=== PATIENT | female | born 1955 | race Hispanic/Latino ===

== ENCOUNTER 2019-07-22 21:20 | Inpatient (IN) | payer BC, OTHER ==
[~2019-07-22] VITALS: Ht 152.4 cm; Wt 65.9 kg
[2019-07-22] MEDS ORDERED: SODIUM CHLORIDE 0.9% 500 ML IV ONE (21:56)
[2019-07-23] VITALS (57 sets, daily range): BP systolic 88–182; BP diastolic 36–119; PULSE 99–118; RESP 7–32; TEMP 97.6–98.5
[2019-07-23] MEDS ORDERED: LEVOFLOXACIN 500 MG/D5W 100 ML 100 ML ONE (00:45)
[2019-07-23] MEDS ORDERED: LIDOCAINE HCL-MPF 1% 2ML VIAL IV PRN (01:15)
[2019-07-23] MEDS ORDERED: ONDANSETRON HCL 4 MG/2 ML VIAL IV PRN (01:15)
[2019-07-23] MEDS ORDERED: ACETAMINOPHEN 650 MG SUPPOSITORY RC PRN (01:15)
[2019-07-23] MEDS ORDERED: POTASSIUM CHLORIDE 10MEQ/100ML 100 ML IV PRN (01:15)
[2019-07-23] MEDS ORDERED: GLUCAGON 1MG KIT 1 MG ML IM PRN (01:15)
[2019-07-23] MEDS ORDERED: DEXTROSE 50%-WATER 50 ML DISP.SYRIN IV PRN (01:15)
[2019-07-23] MEDS ORDERED: LEVOFLOXACIN 500 MG/D5W 100 ML 100 ML IV SCH (01:15)
[2019-07-23] MEDS ORDERED: LACTATED RINGERS 1000ML 1,000 ML IV SCH (01:15)
[2019-07-23] MEDS ORDERED: NS-20 MEQ KCL 1000ML 1,000 ML IV ONE (01:49)
[2019-07-23] MEDS ORDERED: MAGNESIUM 2GM PREMIX 50ML 50 ML IV ONE (01:50)
[2019-07-23] MEDS ORDERED: LACTATED RINGERS 1000ML 1,000 ML IV ONE (04:21)
[2019-07-23] MEDS ORDERED: MEROPENEM 1 GM VIAL ONE (05:38)
[2019-07-23] MEDS ORDERED: NOREPINEPHRINE 4MG/NS 250ML 250 ML IV ONE (05:39)
[2019-07-23] MEDS ORDERED: SODIUM CHLORIDE 0.9% 100 ML IV ONE (05:39)
[2019-07-23] MEDS ORDERED: VANCOMYCIN 1GM+NS 250ML 250 ML IV SCH (07:45)
[2019-07-23] MEDS ORDERED: VANCOMYCIN PROTOCOL PER PHARMACY IV PRN (07:45)
[2019-07-23] MEDS ORDERED: NOREPINEPHRINE 4MG/NS 250ML 250 ML IV SCH (08:00)
[2019-07-23] MEDS ORDERED: FUROSEMIDE 10 MG/ML 4ML VIAL IV SCH (08:15)
[2019-07-23] MEDS: MEROPENEM 500 MG VIAL IV SCH ×2 (08:36→16:25)
[2019-07-23] MEDS: INSULIN HUMULIN R 100 UNIT/ML 3ML SQ SCH ×3 (08:41→18:00)
[2019-07-23] MEDS ORDERED: FAMOTIDINE/PF 20 MG/2 ML VIAL IV SCH (09:00)
--- NOTE | 2019-07-23 12:50 | NUR ---
Dr Gonsalez at bedside, new orders given
[2019-07-23] MEDS: THIAMINE HCL 100 MG/ML 2ML VIAL IVP SCH (14:03)
[2019-07-23] MEDS: FUROSEMIDE 10 MG/ML 10ML VIAL IVP SCH ×2 (14:05→21:33)
[2019-07-23] MEDS: HEPARIN SODIUM 5000UNIT/ML 1ML VIAL SQ SCH (21:45)
--- NOTE | 2019-07-23 22:00 | NUR ---
Call from Dr Delacruz at 2023. Full report given on pt status. Reported CT abd/pelvis results. Ordered schedule patient to get a right side percutaneous nephrostomy tube placed by Interventional radiology tomorrow or as soon as possible. Clinical Program Consultant Nany informed for pt scheduling.
[2019-07-24] VITALS (24 sets, daily range): BP systolic 103–127; BP diastolic 44–79; PULSE 94–115; RESP 15–24; TEMP 97.4–98.8
[2019-07-24] MEDS: MEROPENEM 500 MG VIAL IV SCH ×3 (00:08→16:12)
--- NOTE | 2019-07-24 05:29 | NUR ---
Patient's daughter to visit patient this AM. Patient wants to wait to discuss procedure with daughter prior to signing consent for nephrostomy tube placement. Smith urine specimen sent to lab for UA as ordered.
[2019-07-24] MEDS: INSULIN HUMULIN R 100 UNIT/ML 3ML SQ SCH ×5 (06:00→20:26)
--- NOTE | 2019-07-24 07:07 | NUR ---
Care of patient endorsed to Son BARKER. Patient status unchanged. Call light and needed items placed readily at hand. Encouraged to call prn.
[2019-07-24] MEDS: THIAMINE HCL 100 MG/ML 2ML VIAL IVP SCH (08:34)
[2019-07-24] MEDS: FUROSEMIDE 10 MG/ML 10ML VIAL IVP SCH (08:34)
[2019-07-24] MEDS: HEPARIN SODIUM 5000UNIT/ML 1ML VIAL SQ SCH ×2 (09:00→20:25)
[2019-07-24] MEDS ORDERED: VANCOMYCIN 500MG+NS 100ML 100 ML IV SCH (09:00)
[2019-07-24] MEDS ORDERED: LIDOCAINE HCL 1% MDV 50ML VIAL ONE (12:55)
[2019-07-24] MEDS ORDERED: IODIXANOL 320 MG/ML 100 ML VIAL ONE (12:55)
[2019-07-24] MEDS ORDERED: FENTANYL CITRATE PF 50 MCG/1 ML 2ML VIAL ONE (13:48)
[2019-07-24] MEDS ORDERED: MIDAZOLAM HCL 1 MG/ML 2ML VIAL ONE (13:48)
--- NOTE | 2019-07-24 14:20 | NUR ---
pt. was on [id number] per Son PAZWill initiate Physical Therapy Evaluation [id number]/19/2020. Addendum: 07/24/19 at 1503 by SYDNI HILLIARD PT PT Amended: Links added.
[2019-07-24] MEDS ORDERED: PHARMACY COMMUNICATION MISC SCH ×2 (14:45→15:00)
[2019-07-24] MEDS: LACTATED RINGERS 1000ML 1,000 ML IV SCH (15:17)
--- NOTE | 2019-07-24 15:40 | NUR ---
DC Plan Discussed discharge plan with patient. States lives with 2 nieces who are both minors. States their grandmother (patient's mother Alpa Wynne) is currently staying with them. Denies any HH, provider, or DME. States independently performs all ADLs. States feels safe returning home upon discharge. Denies having any further questions/concerns. CD Addendum: 07/24/19 at 1637 by ESTIVEN HARMON CM Amended: Links added.
--- NOTE | 2019-07-24 17:38 | NUR ---
REPORT RECEIVED AT 1650 RECEIVED REPORT, PATIENT ON O2 AT 2 LITERS NC AND O2 SATS 98-100%, ON CLEAR LIQUID DIET, 2D ECHO SHOWS EF AT 40-45%, RIGHT NEPHROSTOMY TUBE PLACED 07/24/19 FLUSH WITH 10CC EVERY 8 HOURS NS . LAST FLUSHED AT 1600, BLOOD CULTURE 1 OF 2 FOR GRAM NEGATIVE RODS. COVID NEGATIVE, ON TELEMETRY BLOOD SUGAR AC & HS BLOOD SUGAR AT 1600, 154 PT EVAL, UP TO CHAIR AND IS Q 2 HOURS W/A, LR AT 100 CC/HR , 20G IN RFA AND 22G IN RH , MCKINLEY CATHETER DRAINING YELLOW URINE DAILY WEIGHT AND STRICT I&O 'S
--- NOTE | 2019-07-24 19:45 | NUR ---
MD ROUNDS PATIENT AWAKE AND ALERT. VOICES ALL NEEDS. NO COMPLAINTS OF PAIN VOICED AT THIS TIME. VITALS STABLE. AFEBRILE. NEPHROSTOMY TUBE PATENT AND FLUSHED. VISITED WITH PATIENT. POC DISCUSSED. NEW ORDERS RECEIVED FOR AN ONCOLOGY CONSULT AND CARRIED OUT. PATIENT AWARE. NO QUESTIONS OR CONCERNS VOICED AT THIS TIME. HOB ELEVATED. MCKINLEY CATHETER PATENT DRAINING CLEAR RED TINGED URINE TO BSD. NO SIGNS OF DISTRESS NOTED. CALL LIGHT WITHIN REACH. WILL CONTINUE TO BE OBSERVED. Addendum: 07/24/19 at 2150 by MIA POWERS RN RN Amended: Links added.
[2019-07-25] VITALS (8 sets, daily range): BP systolic 115–132; BP diastolic 68–78; PULSE 89–95; RESP 14–20; TEMP 97.1–98.4
[2019-07-25] MEDS: LACTATED RINGERS 1000ML 1,000 ML IV SCH ×2 (00:16→09:30)
[2019-07-25] MEDS: MEROPENEM 500 MG VIAL IV SCH ×4 (00:16→23:36)
[2019-07-25] MEDS: INSULIN HUMULIN R 100 UNIT/ML 3ML SQ SCH ×4 (06:15→21:00)
[2019-07-25] MEDS: THIAMINE HCL 100 MG/ML 2ML VIAL IVP SCH (08:08)
[2019-07-25] MEDS: HEPARIN SODIUM 5000UNIT/ML 1ML VIAL SQ SCH ×2 (08:12→20:34)
--- NOTE | 2019-07-25 12:48 | NUR ---
ONCOLOGY DR. GALLEGOS IN TO SEE PATIENT. NO NEW ORDERS AT THIS TIME.
--- NOTE | 2019-07-25 13:41 | NUR ---
NEPHROLOGY DR. HUBBARD IN TO SEE PATIENT. NEW ORDERS RECEIVED AND CARRIED OUT.
[2019-07-26] VITALS (9 sets, daily range): BP systolic 120–137; BP diastolic 64–79; PULSE 83–117; RESP 14–20; TEMP 97.3–97.8
[2019-07-26] MEDS: INSULIN HUMULIN R 100 UNIT/ML 3ML SQ SCH ×4 (06:17→21:29)
[2019-07-26] MEDS: MEROPENEM 500 MG VIAL IV SCH ×2 (06:49→15:25)
[2019-07-26] MEDS: THIAMINE HCL 100 MG/ML 2ML VIAL IVP SCH (10:31)
[2019-07-26] MEDS: HEPARIN SODIUM 5000UNIT/ML 1ML VIAL SQ SCH ×2 (10:36→21:28)
[2019-07-27] VITALS (7 sets, daily range): BP systolic 111–139; BP diastolic 68–74; PULSE 85–104; RESP 18–20; TEMP 97.3–97.6
[2019-07-27] MEDS: MEROPENEM 500 MG VIAL IV SCH ×3 (00:20→15:27)
[2019-07-27] MEDS: INSULIN HUMULIN R 100 UNIT/ML 3ML SQ SCH ×4 (07:30→21:28)
[2019-07-27] MEDS: THIAMINE HCL 100 MG/ML 2ML VIAL IVP SCH (09:48)
[2019-07-27] MEDS: HEPARIN SODIUM 5000UNIT/ML 1ML VIAL SQ SCH ×2 (09:57→21:25)
--- NOTE | 2019-07-27 15:30 | NUR ---
DC MCKINLEY DC MCKINLEY, EMPTIED 1100CC URINE FORM MCKINLEY BAG, WITHDREW 10CC FLUID FROM CATHETER, REMOVED MCKINLEY FROM PATIENT, PATIENT TOLERATED WITHOUT INCIDENT, USED ALCOHOL PREP TO LOOSEN GLUE ON STATLOC WHEN REMOVING FROM PATIENT'S RIGHT LEG. PATIENT DUE TO VOID 6 HOURS (2130 HOURS).
[2019-07-28] VITALS (13 sets, daily range): BP systolic 115–150; BP diastolic 61–78; PULSE 80–98; RESP 18–20; TEMP 97.6–97.9
[2019-07-28] MEDS: MEROPENEM 500 MG VIAL IV SCH ×4 (01:59→23:45)
[2019-07-28] MEDS: INSULIN HUMULIN R 100 UNIT/ML 3ML SQ SCH ×4 (07:30→20:17)
[2019-07-28] MEDS: HEPARIN SODIUM 5000UNIT/ML 1ML VIAL SQ SCH ×2 (08:10→20:16)
[2019-07-28] MEDS: THIAMINE HCL 100 MG/ML 2ML VIAL IVP SCH (08:33)
--- NOTE | 2019-07-28 10:15 | NUR ---
U/S GD PARACENTESIS PROCEDURE PERFORMED BY DR Tony NEAL. PUNCTURE SITE RLQ AND PATIENT TOLERATED PROCEDURE WELL. TOTAL REMOVED 2.2 LITERS OF CLOUDY YELLOW FLUID. END OF PROCEDURE AT 1000. CATHETER REMOVED AND DRESSING APPLIED. NO BLEEDING NOTED. REPORT GIVEN TO Jerardo TRAVIS RN AND PATIENT TRANSPORTED TO [facility] VIA W/C AT 1015. AAO X3 WITH NO C/O PAIN. SPECIMEN SENT TO LAB.
--- NOTE | 2019-07-28 10:40 | NUR ---
s/p RLQ PARACENTESIS 2.2L OUT, NO BLEEDING NO DRESSING NOR SWELLING. AAOX2 DENIES ANY PAIN.
[2019-07-28] MEDS ORDERED: ALBUMIN (HUMAN) 25% 50 ML IV SCH (13:15)
[2019-07-28] MEDS: PHARMACY COMMUNICATION MISC SCH ×12 (13:30→23:42)
[2019-07-29] VITALS (9 sets, daily range): BP systolic 118–145; BP diastolic 63–82; PULSE 86–92; RESP 16–20; TEMP 97.9–98.4
[2019-07-29] MEDS: PHARMACY COMMUNICATION MISC SCH ×8 (01:30→11:01)
[2019-07-29] MEDS: INSULIN HUMULIN R 100 UNIT/ML 3ML SQ SCH ×4 (05:51→20:32)
[2019-07-29] MEDS ORDERED: ALBUMIN (HUMAN) 25% 50 ML IV NR (07:45)
[2019-07-29] MEDS: HEPARIN SODIUM 5000UNIT/ML 1ML VIAL SQ SCH ×2 (10:20→20:31)
[2019-07-29] MEDS: MEROPENEM 500 MG VIAL IV SCH ×3 (10:26→23:16)
[2019-07-29] MEDS: THIAMINE HCL 100 MG/ML 2ML VIAL IVP SCH (10:26)
--- NOTE | 2019-07-29 11:01 | NUR ---
PATIENT DOES NOT MEET CRITERIA FOR ALBUMIN INFUSION
--- NOTE | 2019-07-29 17:57 | NUR ---
BS CHECK DONE AFTER EATING, NOT ACCURATE. NO INSULIN COVERAGE.
--- NOTE | 2019-07-29 19:07 | NUR ---
DISCHARGE PLANNING NEEDS TO BE REVISITEDD WITH PATIENT. 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 CM TO FOLLOW UP WITH MD IN [facility] DC NEEDS Addendum: 07/29/19 at 1910 by KALPESH ZAZUETA RN CM Amended: Links added.
[2019-07-30] VITALS (7 sets, daily range): BP systolic 122–161; BP diastolic 56–87; PULSE 86–105; RESP 16–20; TEMP 96.7–99.2
[2019-07-30] MEDS: INSULIN HUMULIN R 100 UNIT/ML 3ML SQ SCH ×4 (05:30→21:00)
[2019-07-30] MEDS: THIAMINE HCL 100 MG/ML 2ML VIAL IVP SCH (08:30)
[2019-07-30] MEDS: HEPARIN SODIUM 5000UNIT/ML 1ML VIAL SQ SCH ×2 (08:30→23:21)
[2019-07-30] MEDS: MEROPENEM 500 MG VIAL IV SCH ×3 (08:30→23:19)
--- NOTE | 2019-07-30 17:00 | NUR ---
LEFT MESSAGE WITH ID ON CONSULT ..PENDING CALL BACK LEFT MESSAGE WITH DR POWERS OFFICE ON CONSULT ..PENDING CALL BACK
[2019-07-31] VITALS (9 sets, daily range): BP systolic 145–158; BP diastolic 74–84; PULSE 90–98; RESP 14–18; TEMP 98.1–98.5
--- NOTE | 2019-07-31 02:30 | NUR ---
nephrostomy tube flushed, patent. urine output clear jayjay. Addendum: 07/31/19 at 0257 by KEIKO QUINTANA RN RN Amended: Links added.
[2019-07-31] MEDS: INSULIN HUMULIN R 100 UNIT/ML 3ML SQ SCH ×4 (06:07→21:00)
--- NOTE | 2019-07-31 07:03 | NUR ---
REPORT GIVEN TO MJ HANNA
[2019-07-31] MEDS: MEROPENEM 500 MG VIAL IV SCH ×2 (08:54→21:51)
[2019-07-31] MEDS: THIAMINE HCL 100 MG/ML 2ML VIAL IVP SCH (08:54)
[2019-07-31] MEDS: HEPARIN SODIUM 5000UNIT/ML 1ML VIAL SQ SCH ×2 (08:57→22:03)
[2019-07-31] MEDS ORDERED: VANCOMYCIN PROTOCOL PER PHARMACY IV SCH ×2 (12:00→12:15)
[2019-07-31] MEDS ORDERED: RENAL DOSE IV SCH (12:15)
[2019-07-31] MEDS ORDERED: VANCOMYCIN 1GM+NS 250ML 250 ML IV SCH (12:30)
--- NOTE | 2019-07-31 12:34 | NUR ---
I HAVE RECEIVED [address] Derek POWERS OFFICE IN REGARDS TO NEW CONSULT AND HAVE GIVEN THEM ALL THE PERTINENT INFORMATION.
--- NOTE | 2019-07-31 12:37 | NUR ---
DR FISHER HERE AND HAS ADDED ON VANCOMYCIN TO TREAT THE PT'S ELEVATED WBC COUNT.
[2019-07-31] MEDS ORDERED: LACTULOSE 20 GM/30 ML UDCUP PO PRN (13:00)
--- NOTE | 2019-07-31 13:57 | NUR ---
RDSCREEN - LOS X 8 Pt admitted with Sepsis, Encephalopathy, Acute UTI. Pt tolerating 75gm CCD with no report of GI distress, Poor/Fair PO intake at 50%. Pt with Obesity Class I. Compromised renal function. Elevated serum potassium/serum phosphorus. Recommend to add Renal Non-Dialysis Diet modification 60mL ProMod QD RD to continue to monitor. Please notify RD as additional nutrition concerns arise. Thank you. Addendum: 07/31/19 at 1402 [address] V[address] RD Amended: Links added.
--- NOTE | 2019-07-31 16:57 | NUR ---
DISPO TO HOME IN CARE OF FAMILY. SPOKE TO PATIENT AT BEDSIDE, STATES [facility] NEED ANY REHAB, STATES IS STRONG AND HAS HELP WITH ADLS. Addendum: 07/31/19 at 1657 by KALPESH ZAZUETA RN CM Amended: Links added.
[2019-08-01] VITALS (9 sets, daily range): BP systolic 127–156; BP diastolic 66–80; PULSE 73–112; RESP 16–20; TEMP 97.9–98.9
[2019-08-01] MEDS: INSULIN HUMULIN R 100 UNIT/ML 3ML SQ SCH ×4 (06:05→20:34)
[2019-08-01] MEDS: HEPARIN SODIUM 5000UNIT/ML 1ML VIAL SQ SCH ×2 (09:00→20:33)
[2019-08-01] MEDS: MEROPENEM 500 MG VIAL IV SCH ×2 (11:35→20:30)
[2019-08-01] MEDS: THIAMINE HCL 100 MG/ML 2ML VIAL IVP SCH (11:36)
[2019-08-01] MEDS: HYDROXYZINE HCL 25 MG TABLET PO SCH ×2 (14:30→20:30)
[2019-08-01] MEDS: NYSTATIN 15 GM OINT TP SCH ×2 (14:31→21:25)
[2019-08-01] MEDS: FAMOTIDINE 20MG TAB 20 MG TAB PO SCH (14:33)
--- NOTE | 2019-08-01 18:13 | NUR ---
NEPHROSTOMY flushed nephrostomy tube with 20 ml NS Addendum: 08/01/19 at 1815 by AUDREY VILLAFUERTE RN RN Amended: Links added.
[2019-08-02] VITALS (9 sets, daily range): BP systolic 141–158; BP diastolic 72–86; PULSE 53–116; RESP 16–20; TEMP 97.5–98.6
[2019-08-02] MEDS: INSULIN HUMULIN R 100 UNIT/ML 3ML SQ SCH ×4 (05:54→21:34)
[2019-08-02] MEDS: MEROPENEM 500 MG VIAL IV SCH ×2 (08:00→21:11)
[2019-08-02] MEDS: NYSTATIN 15 GM OINT TP SCH ×2 (09:00→21:11)
[2019-08-02] MEDS: HYDROXYZINE HCL 25 MG TABLET PO SCH ×4 (09:00→21:11)
[2019-08-02] MEDS: HEPARIN SODIUM 5000UNIT/ML 1ML VIAL SQ SCH ×2 (09:00→21:30)
[2019-08-02] MEDS: FAMOTIDINE 20MG TAB 20 MG TAB PO SCH (09:00)
--- NOTE | 2019-08-02 11:30 | NUR ---
Dr Hanson here ,spoke with pt no new orders given Addendum: 08/02/19 at 1954 by AUDREY VILLAFUERTE RN RN Amended: Links added.
[2019-08-02] MEDS: THIAMINE HCL 100 MG/ML 2ML VIAL IVP SCH (11:38)
[2019-08-02] MEDS: PREDNISONE 20 MG TABLET PO SCH (15:58)
--- NOTE | 2019-08-02 19:45 | NUR ---
PM Assessment Received pt awake, routine assessment done, noted with generalized rashes which pt claimed she had a reaction in one of the ABX treatment that was given to her but was stop immediately. Pt made aware that she has been started on steroid medications with Lotrimin/Clotrimazole cream that will be applied BID. Pt denies any itchiness as she is on scheduled Atarax. Pt made aware that once discharge she will have the nephrostomy tube in place. Verified with pt if she knows how to empty the nephrostomy tube, stated she saw how it is being done. I made her aware that I will need for her to do a return demonstration in AM when I will empty it, agreed.
[2019-08-02] MEDS: CLOTRIMAZOLE 30 GM CREAM.GM. TP SCH (21:11)
[2019-08-03] VITALS (7 sets, daily range): BP systolic 102–153; BP diastolic 67–78; PULSE 75–106; RESP 16–21; TEMP 97.4–98.6
[2019-08-03] MEDS: INSULIN HUMULIN R 100 UNIT/ML 3ML SQ SCH ×4 (06:12→21:10)
--- NOTE | 2019-08-03 06:43 | NUR ---
Re: Nephrostomy tube emptying teaching Pt did a return demonstration on how to empty her nephrostomy bag did well, & I showed her on how to snap the bag on her leg once she will be home so she won't be holding the bag but with emphasis to empty the bag more frequent to prevent accidental pulling, agreed & verbalizes understanding.
--- NOTE | 2019-08-03 07:05 | NUR ---
MD Rounds Dr. Bowen rounded, seen pt & stated can be discharge on his standpoint to follow up in 1 week at his office.
[2019-08-03] MEDS ORDERED: SODIUM POLYSTYRENE SULFONATE 15 GM/60 ML ML PO SCH (08:30)
[2019-08-03] MEDS: HEPARIN SODIUM 5000UNIT/ML 1ML VIAL SQ SCH ×2 (09:00→20:15)
[2019-08-03] MEDS: NYSTATIN 15 GM OINT TP SCH ×3 (09:00→20:54)
[2019-08-03] MEDS: THIAMINE HCL 100 MG/ML 2ML VIAL IVP SCH (12:09)
[2019-08-03] MEDS: MEROPENEM 500 MG VIAL IV SCH ×2 (12:09→20:42)
[2019-08-03] MEDS: HYDROXYZINE HCL 25 MG TABLET PO SCH ×3 (12:10→20:42)
[2019-08-03] MEDS: PREDNISONE 20 MG TABLET PO SCH (12:10)
[2019-08-03] MEDS: CLOTRIMAZOLE 30 GM CREAM.GM. TP SCH ×2 (12:32→20:54)
--- NOTE | 2019-08-03 13:02 | NUR ---
Pt BECAME UNBALANCED AND WEAK AND WAS TAKEN BACK TO ROOM IN wc. VITALS IN SEATED POST SESSION 146/75 80 HR 90% 02 ON ROOM AIR Addendum: 08/03/19 at 1303 by STELLA POLLARD, PT PT Amended: Links added.
[2019-08-03] MEDS ORDERED: FAMOTIDINE/PF 20 MG/2 ML VIAL IV ONE (16:22)
[2019-08-03] MEDS ORDERED: SODIUM POLYSTYRENE SULFONATE 15 GM/60 ML ML ONE (16:23)
[2019-08-04] VITALS (9 sets, daily range): BP systolic 133–156; BP diastolic 64–79; PULSE 74–91; RESP 16–18; TEMP 97.4–98.7
[2019-08-04] MEDS: INSULIN HUMULIN R 100 UNIT/ML 3ML SQ SCH ×4 (07:30→20:47)
[2019-08-04] MEDS: MEROPENEM 500 MG VIAL IV SCH ×2 (13:18→20:32)
[2019-08-04] MEDS: FAMOTIDINE/PF 20 MG/2 ML VIAL IV SCH (13:18)
[2019-08-04] MEDS: HYDROXYZINE HCL 25 MG TABLET PO SCH ×3 (13:19→20:31)
[2019-08-04] MEDS: THIAMINE HCL 100 MG/ML 2ML VIAL IVP SCH (13:19)
[2019-08-04] MEDS: HEPARIN SODIUM 5000UNIT/ML 1ML VIAL SQ SCH ×2 (13:20→20:47)
[2019-08-04] MEDS: NYSTATIN 15 GM OINT TP SCH ×3 (13:27→20:36)
[2019-08-04] MEDS: CLOTRIMAZOLE 30 GM CREAM.GM. TP SCH ×2 (13:27→20:37)
[2019-08-04] MEDS: PREDNISONE 20 MG TABLET PO SCH (13:27)
[2019-08-05] VITALS (8 sets, daily range): BP systolic 126–143; BP diastolic 61–75; PULSE 76–84; RESP 16–18; TEMP 97.4–98.1
[2019-08-05] MEDS: INSULIN HUMULIN R 100 UNIT/ML 3ML SQ SCH ×5 (06:29→21:00)
[2019-08-05] MEDS: HYDROXYZINE HCL 25 MG TABLET PO SCH ×3 (08:40→19:59)
[2019-08-05] MEDS: FAMOTIDINE/PF 20 MG/2 ML VIAL IV SCH (08:40)
[2019-08-05] MEDS: MEROPENEM 500 MG VIAL IV SCH ×2 (08:40→19:59)
[2019-08-05] MEDS: THIAMINE HCL 100 MG/ML 2ML VIAL IVP SCH (08:40)
[2019-08-05] MEDS: PREDNISONE 20 MG TABLET PO SCH (08:40)
[2019-08-05] MEDS: HEPARIN SODIUM 5000UNIT/ML 1ML VIAL SQ SCH ×2 (08:42→20:15)
[2019-08-05] MEDS: NYSTATIN 15 GM OINT TP SCH ×3 (08:43→20:01)
[2019-08-05] MEDS: CLOTRIMAZOLE 30 GM CREAM.GM. TP SCH ×2 (08:44→20:01)
[2019-08-05] MEDS ORDERED: INSULIN HUMULIN R 100 UNIT/ML 3ML SQ SCH (20:45)
[2019-08-06] VITALS (7 sets, daily range): BP systolic 127–141; BP diastolic 64–82; PULSE 70–91; RESP 17–20; TEMP 97.3–98.2
[2019-08-06] MEDS: INSULIN HUMULIN R 100 UNIT/ML 3ML SQ SCH ×4 (06:15→21:39)
[2019-08-06] MEDS: NYSTATIN 15 GM OINT TP SCH ×3 (09:00→21:59)
[2019-08-06] MEDS: CLOTRIMAZOLE 30 GM CREAM.GM. TP SCH ×2 (09:00→21:59)
[2019-08-06] MEDS: MEROPENEM 500 MG VIAL IV SCH ×2 (09:46→22:02)
[2019-08-06] MEDS: THIAMINE HCL 100 MG/ML 2ML VIAL IVP SCH (09:47)
[2019-08-06] MEDS: FAMOTIDINE/PF 20 MG/2 ML VIAL IV SCH (09:47)
[2019-08-06] MEDS: HYDROXYZINE HCL 25 MG TABLET PO SCH ×3 (09:53→22:03)
[2019-08-06] MEDS: PREDNISONE 20 MG TABLET PO SCH (09:53)
[2019-08-06] MEDS: HEPARIN SODIUM 5000UNIT/ML 1ML VIAL SQ SCH ×2 (09:56→22:09)
--- NOTE | 2019-08-06 12:43 | NUR ---
BELLA Note: Shamar BEJARANO wkr approval, pending delivery in pt room CM spoke to Charline lubin/Shamar BEJARANO, pt has approval, will deliver standard walker no wheels in pt's room. Primary nurse aware.CM to con to follow up.
--- NOTE | 2019-08-06 15:45 | NUR ---
PICC LINE CONSENT REVIEWED PICC LINE CONSENT WITH PATIENT AND REASON FOR PICC LINE. PATIENT THEN BEGAN TO CRY AND APPEARED VERY UPSET. I ASKED PATIENT WHAT WAS WRONG AND PATIENT REPLIED "I FEEL LIKE I HAVE NO OTHER CHOICE! NO ONE IS TALKING TO ME ABOUT WHY I AM STILL HERE. WHY AM I JUST LEARNING THAT I HAVE TO GO HOME WITH THIS [REFERRING TO NEPHROSTOMY TUBE]?! AND NOW YOU'RE TELLING ME I NEED A LINE TO GET THESE ANTIBIOTICS?! I THOUGHT I WAS GOING TO GO HOME WITH WITH PILL ANTIBIOTICS. I FEEL LIKE NO ONE, LIKE THE DOCTORS, ARE TELLING ME WHAT'S WRONG WITH ME. I FEEL LIKE I HAVE NO OPTIONS!" I REASSURED PATIENT AND EXPLAINED THE PLAN OF CARE. INFORMED PATIENT THAT SHE DOES HAVE OPTIONS TO CHOOSE HOW SHE WANTS TO PROCEED WITH HER PLAN OF CARE BECAUSE SHE HAS TO BE IN AGREEMENT. PATIENT REPLIED THAT SHE WANT MORE TIME TO THINK ABOUT PICC LINE PLACEMENT AND WILL NOT SIGN CONSENT RIGHT NOW.
--- NOTE | 2019-08-06 17:27 | NUR ---
CM Note: [facility] pending approval CM spoke to pt discussed dc plans, aware MD recommendations for terminal make up operator abx x 10 days, agreeable for short term placement as unable to secure daily transportation to outpatient abx therapy. Telephone consent ELIJAH obtained for [facility]. Faxed order, clinicals, PT, PAS[facility], Covid result, Covid Transfer form, confirmation received. Spoke to Sara aware of new referrals, will wait for clinicals to be received, aware pending PICC, dcp for tomorrow/once approved. EMS arranged and faxed for tomorrow, primary nurse to call [facility] once pt ready to DC. Primary nurse aware. CM to cont to follow up.
--- NOTE | 2019-08-06 18:24 | NUR ---
CALLED TO DO PICC LINE ON PT. PER REPORT FROM NURSE, PT WAS NOT SURE IF SHE WANTED TO GET PICC LINE PLACED. AFTER REVIEWING PT HISTORY, I ANSWERED PT'S QUESTIONS, BUT SHE STATES SHE WOULD STILL LIKE TO THINK ABOUT IT OVERNIGHT AND WILL NOTIFY THE NURSE IF SHE DECIDES TO PROCEED WITH 'S ORDERS FOR PICC LINE PLACEMENT.
[2019-08-07] VITALS (8 sets, daily range): BP systolic 128–158; BP diastolic 64–88; PULSE 72–86; RESP 18–20; TEMP 97.5–98.7
[2019-08-07] MEDS: INSULIN HUMULIN R 100 UNIT/ML 3ML SQ SCH ×4 (07:12→21:00)
[2019-08-07] MEDS: MEROPENEM 500 MG VIAL IV SCH ×2 (08:36→20:55)
[2019-08-07] MEDS: HEPARIN SODIUM 5000UNIT/ML 1ML VIAL SQ SCH ×2 (09:00→20:56)
[2019-08-07] MEDS: CLOTRIMAZOLE 30 GM CREAM.GM. TP SCH ×2 (09:00→21:02)
[2019-08-07] MEDS: NYSTATIN 15 GM OINT TP SCH ×3 (09:00→21:02)
[2019-08-07] MEDS: FAMOTIDINE/PF 20 MG/2 ML VIAL IV SCH (10:19)
[2019-08-07] MEDS: THIAMINE HCL 100 MG/ML 2ML VIAL IVP SCH (10:19)
[2019-08-07] MEDS: PREDNISONE 20 MG TABLET PO SCH (10:20)
[2019-08-07] MEDS: HYDROXYZINE HCL 25 MG TABLET PO SCH ×3 (10:20→20:55)
--- NOTE | 2019-08-07 10:30 | NUR ---
PICC LINE ASKED PATIENT IF SHE WAS READY TO MAKE DECISION FOR PICC LINE PLACEMENT AND PATIENT REPLIED "NO."
[2019-08-08] VITALS (9 sets, daily range): BP systolic 133–156; BP diastolic 67–81; PULSE 72–95; RESP 16–18; TEMP 97.7–98.3
--- NOTE | 2019-08-08 03:35 | NUR ---
ROUNDS PATIENT RESTING IN BED WITH OU CLOSED, EASILY AROUSED. NO COMPLAINTS OF PAIN VOICED AT THIS TIME. VITALS STABLE. AFEBRILE. RESP EVEN AND UNLABORED. NO SOB NOTED. ON ROOM AIR. UP WITH WALKER FOR ASSIST. DENIES ITCHINESS AT THIS TIME. NEPHROSTOMY TUBE IN PLACE PATIENT AND DRAINING CLEAR YELLOW URINE TO BSD. REPOSITIONED FOR COMFORT. NO SIGNS OF DISTRESS NOTED. CALL LIGHT WITHIN REACH. WILL CONTINUE TO BE OBSERVED. Addendum: 08/08/19 at 0338 by MIA POWERS RN RN Amended: Links added.
[2019-08-08] MEDS: INSULIN HUMULIN R 100 UNIT/ML 3ML SQ SCH ×4 (07:30→22:34)
[2019-08-08] MEDS: MEROPENEM 500 MG VIAL IV SCH ×2 (11:29→22:15)
[2019-08-08] MEDS: FAMOTIDINE/PF 20 MG/2 ML VIAL IV SCH (11:29)
[2019-08-08] MEDS: HYDROXYZINE HCL 25 MG TABLET PO SCH ×3 (11:30→22:15)
[2019-08-08] MEDS: THIAMINE HCL 100 MG/ML 2ML VIAL IVP SCH (11:30)
[2019-08-08] MEDS: CLOTRIMAZOLE 30 GM CREAM.GM. TP SCH ×2 (11:31→21:00)
[2019-08-08] MEDS: NYSTATIN 15 GM OINT TP SCH ×3 (11:31→21:00)
[2019-08-08] MEDS: HEPARIN SODIUM 5000UNIT/ML 1ML VIAL SQ SCH ×2 (11:46→22:16)
[2019-08-09] VITALS (7 sets, daily range): BP systolic 115–146; BP diastolic 59–79; PULSE 88–96; RESP 16–20; TEMP 97.9–98.8
--- NOTE | 2019-08-09 00:41 | NUR ---
NEPHROSTOMY TUBE FLUSHED TUBE WITH 10 CC SALINE. NO ABNORMALITIES NOTED.
[2019-08-09] MEDS: INSULIN HUMULIN R 100 UNIT/ML 3ML SQ SCH ×4 (05:46→21:41)
[2019-08-09] MEDS: THIAMINE HCL 100 MG/ML 2ML VIAL IVP SCH (10:21)
[2019-08-09] MEDS: NYSTATIN 15 GM OINT TP SCH ×3 (10:22→20:41)
[2019-08-09] MEDS: HYDROXYZINE HCL 25 MG TABLET PO SCH ×3 (10:22→20:41)
[2019-08-09] MEDS: FAMOTIDINE/PF 20 MG/2 ML VIAL IV SCH (10:22)
[2019-08-09] MEDS: MEROPENEM 500 MG VIAL IV SCH ×2 (10:22→20:41)
[2019-08-09] MEDS: CLOTRIMAZOLE 30 GM CREAM.GM. TP SCH ×2 (10:23→20:42)
[2019-08-09] MEDS: HEPARIN SODIUM 5000UNIT/ML 1ML VIAL SQ SCH ×2 (10:46→20:39)
--- NOTE | 2019-08-09 14:21 | NUR ---
cm note call made to agus with [facility] and states pt has not been approved yet, does not anticipate approval until possibly earliest sunday, also states that covid test is good for 72 hrs in order to accept. updated primary nurse Isabella on above.
[2019-08-10] VITALS (10 sets, daily range): BP systolic 136–158; BP diastolic 65–87; PULSE 70–110; RESP 16–20; TEMP 98.1–99.3
[2019-08-10] MEDS: INSULIN HUMULIN R 100 UNIT/ML 3ML SQ SCH ×4 (06:01→21:00)
--- NOTE | 2019-08-10 08:00 | NUR ---
WALKED WITH PT. HALLWAY THIS AM AND HAS BEEN UP ALL DAY, WALKS IN ROOM. NO C/O VOICED TODAY
[2019-08-10] MEDS: THIAMINE HCL 100 MG/ML 2ML VIAL IVP SCH (10:12)
[2019-08-10] MEDS: HYDROXYZINE HCL 25 MG TABLET PO SCH ×3 (10:15→21:34)
[2019-08-10] MEDS: FAMOTIDINE/PF 20 MG/2 ML VIAL IV SCH (10:15)
[2019-08-10] MEDS: NYSTATIN 15 GM OINT TP SCH ×3 (10:16→21:35)
[2019-08-10] MEDS: CLOTRIMAZOLE 30 GM CREAM.GM. TP SCH ×2 (10:16→21:35)
[2019-08-10] MEDS: HEPARIN SODIUM 5000UNIT/ML 1ML VIAL SQ SCH ×2 (10:21→21:32)
[2019-08-10] MEDS: MEROPENEM 500 MG VIAL IV SCH ×2 (10:35→21:34)
--- NOTE | 2019-08-10 13:00 | NUR ---
NEPHROSTOMY TUBE FLUSHED, NO RESENTENCE MET.
--- NOTE | 2019-08-10 16:00 | NUR ---
REPEATED COVIC-19 TEST.
[2019-08-11] VITALS (7 sets, daily range): BP systolic 139–155; BP diastolic 68–73; PULSE 90–95; RESP 17–20; TEMP 97.9–98.1
[2019-08-11] MEDS: INSULIN HUMULIN R 100 UNIT/ML 3ML SQ SCH ×3 (05:08→17:45)
[2019-08-11] MEDS: MEROPENEM 500 MG VIAL IV SCH (08:20)
[2019-08-11] MEDS: THIAMINE HCL 100 MG/ML 2ML VIAL IVP SCH (08:21)
[2019-08-11] MEDS: HYDROXYZINE HCL 25 MG TABLET PO SCH ×2 (08:22→14:00)
[2019-08-11] MEDS: HEPARIN SODIUM 5000UNIT/ML 1ML VIAL SQ SCH (08:23)
[2019-08-11] MEDS: FAMOTIDINE/PF 20 MG/2 ML VIAL IV SCH (09:00)
[2019-08-11] MEDS: NYSTATIN 15 GM OINT TP SCH ×2 (09:00→14:00)
[2019-08-11] MEDS: CLOTRIMAZOLE 30 GM CREAM.GM. TP SCH (09:00)
--- NOTE | 2019-08-11 12:00 | NUR ---
CM Note: [facility] approval CM spoke to Sarah Kwok, pt has approval. EMS arranged and faxed for today in case needed, primary nurse to call [facility] once pt ready to DC. Primary nurse aware. CM to cont to follow up.
--- NOTE | 2019-08-11 20:53 | NUR ---
[facility] here t pickle sorter pt to transport to [facility],pt said she already called her family
== END 2019-08-11 20:55 | DRG 871 ==
LOC: EDH 21:20 → EDHIP 07-23 01:06 → 2CH 07-23 06:43 → 3CH 07-24 16:49
PROVIDERS: ADMIT Internal Medicine; ATTEND Internal Medicine
PROC: 5A09457 Assistance with Respiratory Ventilation, 24-96 Consecutive Hours, Continuous Positive Airway Pressure (ICD-10-PCS; principal; 2019-07-23)
PROC: 0T9030Z Drainage of Right Kidney with Drainage Device, Percutaneous Approach (ICD-10-PCS; 2019-07-24)
PROC: 0W9G3ZZ Drainage of Peritoneal Cavity, Percutaneous Approach (ICD-10-PCS; 2019-07-28)
PROC: 05HY33Z Insertion of Infusion Device into Upper Vein, Percutaneous Approach (ICD-10-PCS; 2019-08-07)
DX: A41.9 Sepsis, unspecified organism (principal); R65.21 Severe sepsis with septic shock; J96.01 Acute respiratory failure with hypoxia; G93.41 Metabolic encephalopathy; N17.0 Acute kidney failure with tubular necrosis; I50.23 Acute on chronic systolic (congestive) heart failure; N13.6 Pyonephrosis; G93.49 Other encephalopathy; J81.1 Chronic pulmonary edema; R18.8 Other ascites; E87.1 Hypo-osmolality and hyponatremia; E87.2 Acidosis; I13.0 Hypertensive heart and chronic kidney disease with heart failure and stage 1 through stage 4 chronic kidney disease, or unspecified chronic kidney disease; Z16.24 Resistance to multiple antibiotics; E11.22 Type 2 diabetes mellitus with diabetic chronic kidney disease; R16.0 Hepatomegaly, not elsewhere classified; Z20.828 Contact with and (suspected) exposure to other viral communicable diseases; D50.9 Iron deficiency anemia, unspecified; D72.823 Leukemoid reaction; E66.9 Obesity, unspecified; Z68.28 Body mass index [BMI] 28.0-28.9, adult; E86.1 Hypovolemia; E87.6 Hypokalemia; K57.90 Diverticulosis of intestine, part unspecified, without perforation or abscess without bleeding; K74.60 Unspecified cirrhosis of liver; K80.20 Calculus of gallbladder without cholecystitis without obstruction; R53.81 Other malaise; N18.9 Chronic kidney disease, unspecified; Z74.01 Bed confinement status; Z79.2 Long term (current) use of antibiotics; Z79.4 Long term (current) use of insulin; Z88.8 Allergy status to other drugs, medicaments and biological substances; Z83.3 Family history of diabetes mellitus

== ENCOUNTER 2019-10-06 08:17 | Day surgery (SDC) | payer BC ==
[2019-10-02 13:31] LABS: BASOPHILS % (AUTO) 0.6 % (0.0-5.0); EOSINOPHILS % (AUTO) 4.9 % (0.0-8.0); HEMATOCRIT 30.9 % (36-48); LYMPHOCYTES % (AUTO) 20.5 % (21.0-51.0); MEAN CORPUSCULAR HEMOGLOBIN 27.7 pg (27.0-33.0); MEAN CORPUSCULAR VOLUME 86.3 fL (79-99); MONOCYTES % (AUTO) 7.2 % (3.0-13.0); NEUTROPHILS % (AUTO) 66.4 % (40.0-77.0); PLATELET COUNT (AUTO) 405 K/uL (130-400); RED BLOOD CELL COUNT(AUTO) 3.58 MIL/uL (4.00-5.50); RED CELL DISTRIBUTION WIDTH 13.9 % (11.0-15.5)
[2019-10-02 13:44] LABS: CREATININE 2.1 mg/dL (0.5-1.5); POTASSIUM 4.9 mmol/L (3.5-5.1)
[2019-10-02 13:48] LABS: INR 1.01 (0.85-1.15); PARTIAL THROMBOPLASTIN TIME 28.9 SEC (26.3-35.5); PROTHROMBIN TIME 10.9 SEC (9.6-11.6)
--- NOTE | 2019-10-06 08:54 | NUR ---
Elevated BUN/Creatinine Informed Dr. Hammonds regarding BUN 36 and creatinine 2.1. May proceed with procedure
[2019-10-06 09:12] VITALS: BP 164/85
--- NOTE | 2019-10-06 09:45 | NUR ---
IV Attempted to start IV x2; unsuccessful. Will notify IR
[2019-10-06] MEDS ORDERED: IODIXANOL 320 MG/ML 100 ML VIAL ONE (10:20)
[2019-10-06] MEDS ORDERED: LIDOCAINE HCL 1% MDV 50ML VIAL ONE (10:20)
[2019-10-06 11:30] VITALS: BP 159/89
[2019-10-06 11:45] VITALS: BP 144/68
[2019-10-06 12:00] VITALS: BP 175/88
[2019-10-06 12:15] VITALS: BP 180/91
[2019-10-06 12:30] VITALS: BP 167/90
--- NOTE | 2019-10-06 12:30 | NUR ---
dressing in place, dry and intact., no concerns
== END 2019-10-06 12:30 | disposition home or self-care (01) ==
LOC: DAH 08:17
PROVIDERS: ATTEND Urology
DX: Z46.6 Encounter for fitting and adjustment of urinary device (principal); E11.9 Type 2 diabetes mellitus without complications; I10 Essential (primary) hypertension; Z79.899 Other long term (current) drug therapy; Z88.8 Allergy status to other drugs, medicaments and biological substances; Z87.448 Personal history of other diseases of urinary system; Z79.01 Long term (current) use of anticoagulants
CPT/HCPCS: 36415; 50431; 80048; 82948 ×2; 85025; 85610; 85730; A4215 ×2; A4221; A4222; A4223 ×3; A4606; A4663; J1644; J3490; J7030; Q9967